=== PATIENT | female | born 1940 | race Hispanic/Latino ===

== ENCOUNTER 2017-09-15 11:26 | Inpatient (IN) | payer MEDICARE, MEDICAID ==
[2017-09-15 12:33] LABS: #Eosinphils 0.1 thou/uL (0.0-0.7); #Lymphocytes 1.3 thou/uL (1.20-3.40); #Monocytes 0.4 thou/uL (0.11-0.59); #Neutrophils 5.6 thou/uL (1.40-6.50); %Basophils 0.5 % (0.0-1.0); %Eosinophils 0.8 % (0.0-10.0); %Lymphocytes 17.1 % (21.0-51.0); %Monocytes 4.8 % (0.0-10.0); %Neutrophils 76.7 % (42.0-75.0); Hemoglobin 9.4 g/dL (12.0-16.0); Mean Corpuscular Hemoglobin 32.8 pg (27.0-31.0); Mean Corpuscular Volume 93.6 fL (78.0-98.0); Mean Platelet Volume 8.1 fL (7.4-10.4); Platelet Count 278 thou/uL (130-400); RBC Distribution Width 11.6 % (11.5-14.5); Red Blood Cell (RBC) Count 2.88 mill/uL (4.20-5.40); White Blood Cell (WBC) Count 7.3 thou/uL (4.8-10.8)
[2017-09-15 12:53] LABS: ALT (SGPT) 16 U/L (8-55); AST (SGOT) 21 U/L (5-34); Albumin 4.1 g/dL (3.4-4.8); Alkaline Phosphatase 83 U/L (40-150); Anion Gap 12 mmol/L (10-20); BUN (Urea Nitrogen) 29 mg/dL (9.8-20.1); Bilirubin, Total 0.8 mg/dL (0.2-1.2); Calc. Creatinine Clearance 0 mL/min (70-130); Calcium 9.4 mg/dL (7.8-10.44); Carbon Dioxide 23 mmol/L (23-31); Chloride 105 mmol/L (98-107); Estimated GFR-MDRD 68; Globulin 2.2 g/dL (2.4-3.5); Glucose 161 mg/dL (83-110); Protein, Total 6.3 g/dL (6.0-8.3); Sodium 136 mmol/L (136-145)
[2017-09-15] MEDS ORDERED: ISOVUE-370 76%-LOCM 1 ML ONE (12:57)
[2017-09-15] MEDS ORDERED: Pantoprazole 40 MG VIAL ONE (13:34)
[2017-09-15] MEDS ORDERED: Metoclopramide HCl 10 MG/2 ML VIAL ONE (13:34)
[2017-09-15] MEDS ORDERED: diphenhydrAMINE 50 MG/ML VIAL ONE (13:34)
[2017-09-15 14:20] LABS: Troponin I Less than 0.010 ng/mL (< 0.028)
--- NOTE | 2017-09-15 15:06 | CT ---
HEAD CT WITHOUT CONTRAST: DATE: 09/15/17. COMPARISON: None. HISTORY: Headache and weakness. TECHNIQUE: Serial axial CT imaging at 5 mm intervals from the vertex through the skull base without contrast. FINDINGS: The imaged paranasal sinuses and mastoid air cells appear well aerated. There is no displaced calvar ial fracture, intracranial hemorrhage, midline shift, or mass effect. IMPRESSION: No intracranial hemorrhage or displaced calvarial fracture. POS: [facility]
--- NOTE | 2017-09-15 15:11 | CT ---
CT OF THE ABDOMEN AND PELVIS WITH CONTRAST: HISTORY: Abdominal pain, weakness, and nausea. TECHNIQUE: Multiple contiguous axial images were obtained in a CT of the abdomen and pelvis with contrast. Milly nal reformats were performed. FINDINGS: There is a 3.9 cm hyperenhancing lesion in the left lobe of the liver which is nonspecific but could represent an atypical hemangioma. There are other hypodensities in the liver which could represent c ysts. There is a 2.8 cm hypodensity in the left kidney which represents a cyst. Other small hypoden sities in both kidneys also likely represent cysts. The patient is status post cholecystectomy. The adrenal glands, spleen, and pancreas are unremarkable. No free air, free fluid, or stranding changes are seen in the abdomen or pelvis. The uterus is atrop hic. There are a few scattered diverticula in the colon. The small bowel and appendix are unremarka ble. No abdominal or pelvic lymphadenopathy are seen. There is a small fat-containing umbilical hernia. The visualized inferior thorax is unremarkable. There are degenerative changes in the spine. 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 IMPRESSION: 1. No acute intraabdominal/pelvic abnormality. 2. Possible hepatic hemangioma. 3. Hepatic and renal cysts. 4. Diverticulosis. 5. Umbilical hernia. 6. Avascular necrosis and degenerative changes in both hips. POS: [facility]
[2017-09-15 15:16] LABS: Bilirubin Negative (Negative); Blood, Urine Negative (Negative); Clarity CLEAR (Clear); Glucose, Urine (Dipstick) Negative (Negative); Leukocyte Negative (Negative); Nitrite Negative (Negative); Protein, Urine (Dipstick) Negative (Neg-Trace); Specific Gravity, Urine 1.022 (1.002-1.036); Urobilinogen 0.2 mg/dL (0.2-1.0)
[2017-09-15] MEDS ORDERED: Dextrose 5% in Water 1,000 ML IV PRN (19:07)
[2017-09-15] MEDS ORDERED: Dextrose 50% Abboject 50 ML SYRINGE SLOW IVP PRN (19:07)
[2017-09-15] MEDS ORDERED: HumaLOG 300 UNITS/3 ML VIAL SC PRN (19:07)
[2017-09-15] MEDS ORDERED: Acetaminophen 325 MG TAB PO PRN (19:07)
[2017-09-15] MEDS ORDERED: Guaifenesin DM 100-10/5 ML UDCUP PO PRN (19:07)
[2017-09-15] MEDS ORDERED: Sodium Chloride 0.9% 1,000 ML IV SCH (19:15)
[2017-09-15] MEDS ORDERED: hydrALAZINE 25 MG TAB PO SCH (21:00)
[2017-09-15] MEDS: Pantoprazole 80 MG in Sodium Chloride 0.9% 100 ML IVP SCH (21:42)
[2017-09-15] MEDS: Sodium Chloride 0.9% 1,000 ML IV SCH (21:42)
[2017-09-15] MEDS: Atorvastatin Calcium 20 MG TAB PO SCH (21:44)
[2017-09-15] MEDS: Gabapentin 300 MG CAP PO SCH (21:44)
[2017-09-16 00:24] VITALS: BMI 26.5
--- NOTE | 2017-09-16 02:04 | HP ---
REASON FOR ADMISSION: Melena. HISTORY OF PRESENT ILLNESS: Patient gives history of having black stools from the last two days. Jordan cuevas has had nearly 3 stools all of which were black. She is feeling weak. The patient vomited twice f rom yesterday. She has been dry heaving as she has not had anything to eat. She is actually from [place], [place] and is visiting family here. Her primary care physician is Dr. Edgar Day in [place], [place]. Per patient, she has had a colonoscopy done 6 months back in [facility] on [facility] in [place], which was normal as far she can remember. No complaints of abdominal pain as such n ow. She has had some colicky pain prior to arrival here. PAST MEDICAL AND SURGICAL HISTORY: Hypertension, dyslipidemia, GERD, low back pain, surgery for kidn ey stones. Hemoglobin A1c of 6.2 in 03/2017. CURRENT MEDICATIONS: Patient is on hydralazine 100 mg twice daily, gabapentin 600 mg p.o. 3 times da gil, ranitidine 150 mg daily, chlorthalidone 50 mg p.o. daily, Tylenol with codeine p.r.n., Coreg 12. 5 mg twice daily, atorvastatin 20 mg daily, Norvasc 10 mg daily, lisinopril 20 mg daily. ALLERGIES: No known drug allergies. PERSONAL HISTORY: Does not abuse alcohol or drugs. No history of smoking. She normally ambulates w ith a walker. FAMILY HISTORY: Mother in her 70s. Father at the age of 85 years as far as patient knows they of natural causes. No history of colon cancer in the parents. REVIEW OF SYSTEMS: The following complete review of systems was negative, unless otherwise mentioned in the HPI or below: Constitutional: Weight loss or gain, ability to conduct usual activities. Sk in: Rash, itching. Eyes: Double vision, pain. ENT/Mouth: Nose bleeding, neck stiffness, pain, te nderness. Cardiovascular: Palpitations, dyspnea on exertion, orthopnea. Respiratory: Shortness of breath, wheezing, cough, hemoptysis, fever or night sweats. Gastrointestinal: Poor appetite, abdom inal pain, heartburn, nausea, vomiting, constipation, or diarrhea. Genitourinary: Urgency, frequenc y, dysuria, nocturia. Musculoskeletal: Pain, swelling. Neurologic/Psychiatric: Anxiety, depressio n. Allergy/Immunologic: Skin rash, bleeding tendency. CODE STATUS: FULL. PHYSICAL EXAMINATION: GENERAL: Patient is a 77-year-old female who is currently not in any acute distress. VITAL SIGNS: Blood pressure 98/66, pulse 75 per minute, respiratory rate 14 per minute, temperature 97.5 degrees Fahrenheit, saturating 99% on room air. NECK: Supple, no elevated JVD. HEENT: Eyes, extraocular muscles intact. Pupils are reacting to light. Oral cavity, mucous membran es are dry. No exudates or congestion. CARDIOVASCULAR: S1, S2 heard. Regular rhythm. RESPIRATORY: Air entry 1+ bilaterally. No rales or rhonchi. ABDOMEN: Soft, bowel sounds heard. No tenderness, rigidity or guarding. EXTREMITIES: No peripheral edema or calf tenderness. VASCULAR SYSTEM: Peripheral pulses 1+ bilateral, no ischemic ulcerations or gangrene. CENTRAL NERVOUS SYSTEM: No gross focal deficits noted. Patient is alert, awake, and oriented well. PSYCHIATRIC: Patient's mood is euthymic. No hallucinations or delusions. LABORATORY AND X-RAY FINDINGS: H&H 9 and 26, platelet count 278, white count of 7.3. BUN 29, creati nine 0.8 and serum glucose 161. Liver enzymes within normal limits. First set of cardiac enzymes ar e negative. Albumin is 4.1. UA is negative for any infection. Stool occult blood x1 is positive. CT of the abdomen and pelvis with contrast done showed no acute abnormality. There is possible hepat ic hemangioma, hepatic and renal cysts were seen. Diverticulosis was seen. Umbilical hernia and inc idental finding of avascular necrosis and degenerative changes in both hips. CT brain done showed no acute intracranial hemorrhage or fractures. CLINICAL IMPRESSION AND PLAN: Patient will be admitted to medical floor for melena. Baseline H&H is around 12 and 37, this was the number in 12/2015. Currently, the H&H is dropped to 9 and 26. She a pparently had a recent colonoscopy as far as she can remember 6 months back and was normal. She does not recall her site superintendent saying she had diverticulosis or polyps removed. Her CT abdomen n ow reveals diverticulosis and likely might have diverticular bleed, but her stool is black. Patient takes only Bowie and no other pain medications. She is also on the ranitidine. Her BUN is slightly higher. We will place her on Protonix drip, H&H q.6 hours. Patient's systolic blood pressure was ar ound 100 when she came. She is on multiple antihypertensive medications at home. In view of this, mirian cuevas will place her on normal saline at 100 mL per hour for now. We will continue her Coreg, Neurontin, Lipitor for now. She will be on a clear liquid diet. Gastroenterology consultation with Dr. Mike chavarria be requested. Patient has had a hemoglobin A1c of 6.2 in 03/2017 and likely the patient has the new onset diabetes mellitus type 2. Her serum sugar was 160 here. She will be covered with mild Hum alog coverage here. We will continue to closely monitor her on medical floor.
[2017-09-16 02:28] LABS: Hemoglobin 8.3 g/dL (12.0-16.0)
[2017-09-16 05:29] LABS: ALT (SGPT) 13 U/L (8-55); AST (SGOT) 17 U/L (5-34); Albumin 3.4 g/dL (3.4-4.8); Alkaline Phosphatase 67 U/L (40-150); Anion Gap 9 mmol/L (10-20); BUN (Urea Nitrogen) 19 mg/dL (9.8-20.1); Bilirubin, Total 0.9 mg/dL (0.2-1.2); Calc. Creatinine Clearance 65 mL/min (70-130); Calcium 8.8 mg/dL (7.8-10.44); Carbon Dioxide 23 mmol/L (23-31); Chloride 110 mmol/L (98-107); Estimated GFR-MDRD Greater than 90; Glucose 88 mg/dL (83-110); Potassium 3.2 mmol/L (3.5-5.1); Protein, Total 5.4 g/dL (6.0-8.3); Sodium 139 mmol/L (136-145)
[2017-09-16] MEDS: Pantoprazole 80 MG in Sodium Chloride 0.9% 100 ML IVP SCH ×2 (05:49→19:08)
[2017-09-16] MEDS: Sodium Chloride 0.9% 1,000 ML IV SCH ×2 (05:49→08:51)
[2017-09-16 07:43] LABS: Hemoglobin 8.1 g/dL (12.0-16.0)
[2017-09-16] MEDS: Carvedilol 6.25 MG TAB PO SCH ×2 (08:51→16:25)
[2017-09-16] MEDS: Gabapentin 300 MG CAP PO SCH ×3 (08:51→20:37)
[2017-09-16] MEDS ORDERED: Amlodipine 10 MG TAB PO SCH (09:00)
--- NOTE | 2017-09-16 12:54 | PDOC.PN ---
- Subjective Encounter Start Date: 09/16/17 Encounter Start Time: 11:00 Subjective: no further bowel movement -: no nausea or abd pain -: feels better - Objective Resuscitation Status: Resuscitation Status FULL:Full Resuscitation MAR Reviewed: Yes Vital Signs & Weight: Vital Signs (12 hours) Temp Pulse Resp BP BP Pulse Ox 09/16/17 11:39 97.5 F L 60 14 126/62 94 L 09/16/17 08:51 152/70 H 09/16/17 08:00 98.1 F 60 16 196/67 H 96 09/16/17 04:40 147/67 H 09/16/17 03:42 97.6 F 67 16 191/81 H 94 L Weight Weight 111 lb 1.6 oz I&O: 09/15/17 09/16/17 09/17/17 06:59 06:59 06:59 Intake Total 913 Output Total 0 Balance 913 Result Diagrams: 09/16/17 07:16 09/16/17 01:32 Additional Labs: Accuchecks 09/16/17 09/16/17 11:43 03:48 POC Glucose 230 H 99 Phys Exam - Physical Examination HEENT: PERRLA, moist MMs Neck: no JVD, supple Respiratory: no wheezing, no rales Cardiovascular: RRR, no significant murmur Gastrointestinal: soft, non-tender, positive bowel sounds Musculoskeletal: no edema, pulses present Neurological: non-focal, moves all 4 limbs Psychiatric: A&O x 3 Dx/Plan (1) Melena Code(s): K92.1 - MELENA Status: Acute (2) Anemia Code(s): D64.9 - ANEMIA, UNSPECIFIED Status: Acute Qualifiers: Anemia type: unspecified type Qualified Code(s): D64.9 - Anemia, unspecified Comment: ?ac blood loss (3) HTN (hypertension) Code(s): I10 - ESSENTIAL (PRIMARY) HYPERTENSION Status: Chronic Qualifiers: Hypertension type: essential hypertension Qualified Code(s): I10 - Essential (primary) hypertension (4) DM type 2 (diabetes mellitus, type 2) Status: Chronic Qualifiers: Diabetes mellitus intermodal customer service insulin use: without intermodal customer service use Diabetes mellitus complication status: with unspecified complications Qualified Code(s) : E11.8 - Type 2 diabetes mellitus with unspecified complications (5) Dyslipidemia Code(s): E78.5 - HYPERLIPIDEMIA, UNSPECIFIED Status: Chronic - Plan is on protonix drip -: clear liq diet, hb dropped down to 8g but also recieved iv fluids -: might need egd, await gi opinion -: records from [facility] in [place] -: continue coreg and lipitor, gentle iv hydration * . Review of Systems - Medications/Allergies Allergies/Adverse Reactions: Allergies Allergy/AdvReac Type Severity Reaction Status Date / Time No Known Allergies Allergy Unverified 09/15/17 19:15 Medications: Current Medications Acetaminophen (Tylenol) 650 mg PO Q4H PRN PRN Reason: Headache/Fever or Pain Last Admin: 09/16/17 06:05 Dose: 650 mg Atorvastatin Calcium (Lipitor) 20 mg PO HS [facility] Last Admin: 09/15/17 21:44 Dose: 20 mg Carvedilol (Coreg) 12.5 mg PO BID-[facility] Last Admin: 09/16/17 08:51 Dose: 12.5 mg Dextrose/Water (Dextrose 50%) 25 gm SLOW IVP PRN PRN PRN Reason: Hypoglycemia Gabapentin (Neurontin) 300 mg PO TID [facility] Last Admin: 09/16/17 08:51 Dose: 300 mg Glucagon (Glucagon) 1 mg IM PRN PRN PRN Reason: Hypoglycemia Guaifenesin/Dextromethorphan (Robitussin Dm) 15 ml PO Q4H PRN PRN Reason: Cough Dextrose/Water (D5w) 1,000 mls @ 0 mls/hr IV .Q0M PRN; As Directed PRN Reason: Hypoglycemia Pantoprazole Sodium 80 mg/ (Sodium Chloride) 100 mls @ 10 mls/hr IVP INF [facility] Last Admin: 09/16/17 05:49 Dose: 100 mls Sodium Chloride (Normal Saline 0.9%) 1,000 mls @ 50 mls/hr IV .Q20H L[facility] Last Admin: 09/16/17 08:51 Dose: 1,000 mls Insulin Human Lispro (Humalog) 0 units SC .MILD SLIDING SCALE PRN PRN Reason: Mild Correctional Scale Sodium Chloride (Flush - Normal Saline) 10 ml IVF Q12HR [facility] Last Admin: 09/16/17 08:53 Dose: Not Given Sodium Chloride (Flush - Normal Saline) 10 ml IVF PRN PRN PRN Reason: Saline Flush
[2017-09-16] MEDS: Atorvastatin Calcium 20 MG TAB PO SCH (20:37)
--- NOTE | 2017-09-16 23:53 | CON ---
DATE OF CONSULTATION: 09/16/2017 REQUESTING PHYSICIAN: Dr. Carreon. REASON FOR CONSULTATION: Melena. HISTORY OF PRESENT ILLNESS: Gabi Walsh is a very pleasant 77-year-old woman who speaks Angolan only. Her granddaughter helps translate for us. She is actually just visiting town at this time. She is from [place], [place]. She was admitted to the hospital yesterday with anemia and complaints of melena. She reports that about 5 days ago, she started having epigastric abdominal pain followed by nausea and nonbloody emesis. Then, for the past 2 days, she began having jet black stool. She had 3 episodes of what appeared to be melenic stool over those couple of days prior to presentation. Upon admission yesterday, hemoglobin was found to be 9.4, with no prior history of anemia. With some flu id resuscitation, hemoglobin trended down to 8.3 this morning and now 8.1 this afternoon. She has no t had any further melenic stool today. Today, she is not having any abdominal pain or nausea. She h as been on a Protonix drip since presentation. She has been hemodynamically stable. She also report s that she had a colonoscopy just about 6 months ago at [facility] which was evidently all nor mal. It looks like she takes ranitidine once a day as an outpatient. REVIEW OF SYSTEMS: Full review of systems including constitutional, head, eyes, ears, nose, throat, GI, , cardiovascular, respiratory, musculoskeletal, and neurologic systems is negative except as no eleni in the HPI. PAST MEDICAL HISTORY: Hypertension, hyperlipidemia, GERD, low back pain, surgery for kidney stones, normal colonoscopy earlier this year, elsewhere. ALLERGIES: No known drug allergies. OUTPATIENT MEDICATIONS: Hydralazine, gabapentin, ranitidine 150 mg daily, chlorthalidone, Tylenol wi th codeine p.r.n., Coreg, atorvastatin, Norvasc, lisinopril. SOCIAL HISTORY: No smoking, alcohol, or drug use. FAMILY HISTORY: Negative for gastrointestinal malignancy. PHYSICAL EXAMINATION: VITAL SIGNS: Temperature 97.5, pulse 60, blood pressure 126/62, 94% oxygen saturation on room air. GENERAL: Elderly 77-year-old woman lying in bed comfortably in no distress. MENTAL: Alert and fully oriented, pleasant, conversational. SKIN: No jaundice, no rash visible or palpable. EYES: No scleral icterus. Extraocular movements intact. ENT: Mucous membranes moist, no oral lesions. LYMPH: No submandibular, supraclavicular lymphadenopathy. THYROID: Nontender to palpation. HEART: Regular rate and rhythm. LUNGS: Clear to auscultation bilaterally. ABDOMEN: Bowel sounds present, soft and nontender to palpation throughout. EXTREMITIES: No peripheral edema. VESSELS: Radial pulses 2+ bilaterally. NEUROLOGICAL: Cranial nerves II-XII intact bilaterally. No focal deficits. LABORATORY STUDIES: Admission hemoglobin was 9.4 this declined to 8.3 this morning and then 8.1 this afternoon. Admission BUN was 29, which declined to 19 today, creatinine 0.59, sodium 139, potassium 3.2, glucose 230. WBC 7.3, platelets 278. LFTs all normal with total bilirubin 0.9, alkaline phosp hatase 67, AST 17, ALT 13, albumin 3.4. Troponin negative. CK 50. FOBT positive. Urinalysis negat andree. IMAGING STUDIES: CT of the head showed no acute processes. CT of the abdomen and pelvis demonstrate d no acute processes. She is post-cholecystectomy, normal appearing spleen and pancreas, bilateral r enal cysts. She has a 3.9 cm left liver lesion which likely represents a hemangioma. She has divert iculosis and an umbilical hernia as well as avascular necrosis of the bilateral femoral heads. ASSESSMENT AND PLAN: 1. Melena. 2. Acute blood loss anemia. 3. Epigastric pain. 4. Nausea and vomiting, resolved. The patient's presentation seems most consistent with upper GI mucosal pathology such as peptic ulcer disease. Note the elevated BUN to creatinine ratio upon presentation, which has since improved sign ificantly. She has had some decline in hemoglobin, but no further overt bleeding today and she is he modynamically stable. I do recommend we proceed with EGD for further investigation. We will have he r n.p.o. after midnight and plan for the procedure tomorrow. In the meantime, I agree with the Aminta mays IV drip. Further recommendations following EGD. Please call back anytime with questions or concerns.
[2017-09-17] MEDS: Pantoprazole 80 MG in Sodium Chloride 0.9% 100 ML IVP SCH (03:59)
[2017-09-17] MEDS: Sodium Chloride 0.9% 1,000 ML IV SCH ×2 (03:59→17:13)
[2017-09-17] MEDS: Carvedilol 6.25 MG TAB PO SCH ×2 (06:41→17:05)
[2017-09-17 08:41] LABS: #Basophils 0.1 thou/uL (0.0-0.2); #Eosinphils 0.1 thou/uL (0.0-0.7); #Lymphocytes 1.3 thou/uL (1.20-3.40); #Monocytes 0.5 thou/uL (0.11-0.59); #Neutrophils 3.6 thou/uL (1.40-6.50); %Basophils 0.9 % (0.0-1.0); %Eosinophils 1.7 % (0.0-10.0); %Lymphocytes 23.3 % (21.0-51.0); %Monocytes 8.3 % (0.0-10.0); %Neutrophils 65.8 % (42.0-75.0); Hemoglobin 7.9 g/dL (12.0-16.0); Mean Corpuscular HGB CONC 34.3 g/dL (32.0-36.0); Mean Corpuscular Hemoglobin 32.8 pg (27.0-31.0); Mean Corpuscular Volume 95.8 fL (78.0-98.0); Mean Platelet Volume 8.4 fL (7.4-10.4); Platelet Count 205 thou/uL (130-400); RBC Distribution Width 11.7 % (11.5-14.5); Red Blood Cell (RBC) Count 2.41 mill/uL (4.20-5.40); White Blood Cell (WBC) Count 5.5 thou/uL (4.8-10.8)
[2017-09-17 08:57] LABS: Anion Gap 8 mmol/L (10-20); BUN (Urea Nitrogen) 6 mg/dL (9.8-20.1); Calc. Creatinine Clearance 63 mL/min (70-130); Calcium 8.7 mg/dL (7.8-10.44); Carbon Dioxide 26 mmol/L (23-31); Chloride 112 mmol/L (98-107); Estimated GFR-MDRD Greater than 90; Glucose 126 mg/dL (83-110); Potassium 3.4 mmol/L (3.5-5.1); Sodium 143 mmol/L (136-145)
[2017-09-17] MEDS: Gabapentin 300 MG CAP PO SCH ×3 (09:10→20:38)
--- NOTE | 2017-09-17 13:27 | PDOC.PN ---
- Subjective Encounter Start Date: 09/17/17 Encounter Start Time: 11:00 Subjective: no abd pain or nausea -: is npo for egd today - Objective Resuscitation Status: Resuscitation Status FULL:Full Resuscitation MAR Reviewed: Yes Vital Signs & Weight: Vital Signs (12 hours) Temp Pulse Resp BP BP Pulse Ox 09/17/17 12:29 98.5 F 16 L 16 202/67 H 97 09/17/17 08:00 98.0 F 57 L 16 09/17/17 07:59 98.0 F 57 L 16 180/64 H 91 L 09/17/17 06:41 161/72 H 09/17/17 03:40 98.3 F 59 L 16 161/62 H 95 09/17/17 02:03 98.2 F 57 L 16 152/66 H 99 Weight Weight 111 lb 1.6 oz I&O: 09/16/17 09/17/17 09/18/17 06:59 06:59 06:59 Intake Total 913 1700 Output Total 0 Balance 913 1700 Result Diagrams: 09/17/17 08:19 09/17/17 08:19 Additional Labs: Accuchecks 09/17/17 09/17/17 09/16/17 11:36 04:58 20:54 POC Glucose 130 H 122 H 204 H 09/16/17 16:17 POC Glucose 136 H Phys Exam - Physical Examination HEENT: PERRLA, moist MMs Neck: no JVD, supple Respiratory: no wheezing, no rales Cardiovascular: RRR, no significant murmur Gastrointestinal: soft, non-tender, positive bowel sounds Musculoskeletal: no edema, pulses present Neurological: non-focal, moves all 4 limbs Psychiatric: A&O x 3 Dx/Plan (1) Melena Code(s): K92.1 - MELENA Status: Acute (2) Anemia Code(s): D64.9 - ANEMIA, UNSPECIFIED Status: Acute Qualifiers: Anemia type: unspecified type Qualified Code(s): D64.9 - Anemia, unspecified Comment: ac blood loss (3) HTN (hypertension) Code(s): I10 - ESSENTIAL (PRIMARY) HYPERTENSION Status: Chronic Qualifiers: Hypertension type: essential hypertension Qualified Code(s): I10 - Essential (primary) hypertension (4) DM type 2 (diabetes mellitus, type 2) Status: Chronic Qualifiers: Diabetes mellitus half-way insulin use: without superintendent marine oil terminal use Diabetes mellitus complication status: with unspecified complications Qualified Code(s) : E11.8 - Type 2 diabetes mellitus with unspecified complications (5) Dyslipidemia Code(s): E78.5 - HYPERLIPIDEMIA, UNSPECIFIED Status: Chronic - Plan for EGD today -: hemoglobin 7.9g -: will start iron after EGD -: on protonix drip, lipitor and coreg -: at bedside, gave updates * . Review of Systems - Medications/Allergies Allergies/Adverse Reactions: Allergies Allergy/AdvReac Type Severity Reaction Status Date / Time No Known Allergies Allergy Unverified 09/15/17 19:15 Medications: Current Medications Acetaminophen (Tylenol) 650 mg PO Q4H PRN PRN Reason: Headache/Fever or Pain Last Admin: 09/16/17 06:05 Dose: 650 mg Atorvastatin Calcium (Lipitor) 20 mg PO HS [facility] Last Admin: 09/16/17 20:37 Dose: 20 mg Carvedilol (Coreg) 12.5 mg PO BID-WM [facility] Last Admin: 09/17/17 06:41 Dose: 12.5 mg Dextrose/Water (Dextrose 50%) 25 gm SLOW IVP PRN PRN PRN Reason: Hypoglycemia Gabapentin (Neurontin) 300 mg PO TID [facility] Last Admin: 09/17/17 09:10 Dose: Not Given Glucagon (Glucagon) 1 mg IM PRN PRN PRN Reason: Hypoglycemia Guaifenesin/Dextromethorphan (Robitussin Dm) 15 ml PO Q4H PRN PRN Reason: Cough Dextrose/Water (D5w) 1,000 mls @ 0 mls/hr IV .Q0M PRN; As Directed PRN Reason: Hypoglycemia Pantoprazole Sodium 80 mg/ (Sodium Chloride) 100 mls @ 10 mls/hr IVP INF [facility] Last Admin: 09/17/17 03:59 Dose: 100 mls Sodium Chloride (Normal Saline 0.9%) 1,000 mls @ 50 mls/hr IV .Q20H LEX Last Admin: 09/17/17 03:59 Dose: Not Given Insulin Human Lispro (Humalog) 0 units SC .MILD SLIDING SCALE PRN PRN Reason: Mild Correctional Scale Sodium Chloride (Flush - Normal Saline) 10 ml IVF Q12HR [facility] Last Admin: 09/17/17 09:11 Dose: Not Given Sodium Chloride (Flush - Normal Saline) 10 ml IVF PRN PRN PRN Reason: Saline Flush
[2017-09-17] MEDS ORDERED: Ondansetron HCl/PF 4 MG/2 ML Vial IVP PRN (15:57)
[2017-09-17] MEDS ORDERED: Promethazine HCl 25 MG/ML VIAL IM PRN (15:57)
[2017-09-17] MEDS ORDERED: Promethazine HCl 25 MG/ML VIAL SLOW IVP PRN (15:57)
[2017-09-17] MEDS ORDERED: hydrALAZINE 20 MG/ML VIAL ONE (16:20)
[2017-09-17] MEDS: Pantoprazole 40 MG VIAL IVP SCH (20:38)
[2017-09-17] MEDS: Atorvastatin Calcium 20 MG TAB PO SCH (20:38)
--- NOTE | 2017-09-17 20:42 | OP ---
DATE OF PROCEDURE: 09/17/2017 PROCEDURE: Esophagogastroduodenoscopy with biopsy. INDICATION FOR PROCEDURE: Melena, GI bleeding. DESCRIPTION OF PROCEDURE: After the risks and benefits of the procedure were explained to the patien t including risks of bleeding, infection, perforation, reaction to anesthesia and/or pain, informed c onsent was obtained. The patient was then taken to the endoscopy suite where deep sedation was admin istered via propofol and anesthesia support. Once adequate sedation was achieved, the standard gastr oscope was introduced into the mouth with intubation of the esophagus, stomach and proximal small int estine with the findings listed below. The patient tolerated the procedure well with no immediate pe rioperative complications. FINDINGS: Esophagus: Normal appearing mucosa was seen in the proximal, mid and distal esophagus. There was no evidence of erosions, ulcerations, mass lesions or active/recent bleeding. Both the diaphragmatic p inch and GE junction were well seen at 35 cm past the incisors. Stomach: Normal-appearing mucosa was seen in the gastric cardia, fundus, body, greater curvature and incisura; however, 2 depressed clean based ulcerations measuring approximately 5-6 mm in size were s een in the gastric antrum/prepyloric region. The ulcers themselves were in a state of healing with n ormal appearing mucosa intermixed with the small ulcerations (the ulcerations as a whole measuring ap proximately 5-6 mm diameter). There was no high risk stigmata of active/recent bleeding. Multiple b iopsies were taken from the ulcerations as well as random gastric biopsies for determination of H. py winston status. No other intervention was taken given decreased risk of rebleeding. No abnormalities w ere seen on gastric retroflexion. Duodenum: Normal-appearing mucosa was seen in both the duodenal bulb and second portion of the duode num. There was no evidence of erosions, ulcerations, mass lesions or active/recent bleeding. IMPRESSION: 1. Two 5-6 mm depressed ulcerations in a state of healing with no high risk stigmata seen in the gas tric antrum/prepyloric region (most likely source of patient's recent melena). 2. Otherwise, normal upper endoscopy. RECOMMENDATIONS: 1. We would continue to trend H&H and transfuse as necessary to maintain an H&H of 09/20. 2. We would continue to monitor clinically for signs of active gastrointestinal bleeding. 3. We will transfer patient from a PPI drip to pantoprazole 40 mg twice daily. She will need to be on this regimen for the next 2-3 months. 4. We would avoid any NSAIDs as it could cause these ulcerations. 5. We will follow up on biopsy results. If positive for H. pylori, we would place patient on approp riate treatment. 6. The patient will need a repeat EGD in approximately 8-12 weeks for reevaluation of these gastric ulcerations to confirm healing. We will continue to follow. Please call with any additional kalli feliz.
[2017-09-18] MEDS: Gabapentin 300 MG CAP PO SCH ×2 (08:17→14:47)
[2017-09-18] MEDS: Carvedilol 6.25 MG TAB PO SCH ×2 (08:17→17:44)
[2017-09-18] MEDS: Pantoprazole 40 MG VIAL IVP SCH (08:21)
[2017-09-18 08:28] VITALS: TEMP 98
[2017-09-18 08:55] LABS: #Basophils 0.1 thou/uL (0.0-0.2); #Eosinphils 0.2 thou/uL (0.0-0.7); #Lymphocytes 1.6 thou/uL (1.20-3.40); #Monocytes 0.5 thou/uL (0.11-0.59); %Eosinophils 3.1 % (0.0-10.0); %Lymphocytes 24.4 % (21.0-51.0); %Monocytes 8.5 % (0.0-10.0); Hemoglobin 8.5 g/dL (12.0-16.0); Mean Corpuscular HGB CONC 34.3 g/dL (32.0-36.0); Mean Corpuscular Hemoglobin 32.8 pg (27.0-31.0); Mean Corpuscular Volume 95.8 fL (78.0-98.0); Mean Platelet Volume 8.1 fL (7.4-10.4); Platelet Count 242 thou/uL (130-400); RBC Distribution Width 12.3 % (11.5-14.5); Red Blood Cell (RBC) Count 2.58 mill/uL (4.20-5.40); White Blood Cell (WBC) Count 6.3 thou/uL (4.8-10.8)
[2017-09-18 09:11] LABS: Anion Gap 13 mmol/L (10-20); BUN (Urea Nitrogen) 5 mg/dL (9.8-20.1); Calc. Creatinine Clearance 50 mL/min (70-130); Calcium 8.6 mg/dL (7.8-10.44); Carbon Dioxide 22 mmol/L (23-31); Chloride 108 mmol/L (98-107); Estimated GFR-MDRD 74; Glucose 227 mg/dL (83-110); Potassium 3.5 mmol/L (3.5-5.1); Sodium 139 mmol/L (136-145)
--- NOTE | 2017-09-18 11:59 | PDOC.PN ---
- Subjective Encounter Start Date: 09/18/17 Encounter Start Time: 07:45 Subjective: no bleeding per rectum, had 2 episodes of diarrhea post eating -: no nausea or abd dyscomfort now - Objective Resuscitation Status: Resuscitation Status FULL:Full Resuscitation MAR Reviewed: Yes Vital Signs & Weight: Vital Signs (12 hours) Temp Pulse Resp BP BP Pulse Ox 09/18/17 08:17 164/63 H 09/18/17 08:00 98.0 F 61 16 148/67 H 99 09/18/17 06:00 98.8 F 62 16 146/70 H 94 L Weight Weight 111 lb 1.6 oz I&O: 09/17/17 09/18/17 09/19/17 06:59 06:59 06:59 Intake Total 1700 650 360 Balance 1700 650 360 Result Diagrams: 09/18/17 08:38 09/18/17 08:38 Additional Labs: Accuchecks 09/18/17 09/18/17 09/17/17 06:19 01:31 16:47 POC Glucose 136 H 115 H 107 Phys Exam - Physical Examination HEENT: PERRLA, moist MMs Neck: no JVD, supple Respiratory: no wheezing, no rales Cardiovascular: RRR, no significant murmur Gastrointestinal: soft, non-tender, positive bowel sounds Musculoskeletal: no edema, pulses present Neurological: non-focal, moves all 4 limbs Psychiatric: normal affect, A&O x 3 Dx/Plan (1) Melena Code(s): K92.1 - MELENA Status: Resolved (2) Anemia Code(s): D64.9 - ANEMIA, UNSPECIFIED Status: Acute Qualifiers: Anemia type: unspecified type Qualified Code(s): D64.9 - Anemia, unspecified Comment: ac blood loss (3) HTN (hypertension) Code(s): I10 - ESSENTIAL (PRIMARY) HYPERTENSION Status: Chronic Qualifiers: Hypertension type: essential hypertension Qualified Code(s): I10 - Essential (primary) hypertension (4) DM type 2 (diabetes mellitus, type 2) Status: Chronic Qualifiers: Diabetes mellitus terminal carman insulin use: without senior care use Diabetes mellitus complication status: with unspecified complications Qualified Code(s) : E11.8 - Type 2 diabetes mellitus with unspecified complications (5) Dyslipidemia Code(s): E78.5 - HYPERLIPIDEMIA, UNSPECIFIED Status: Chronic - Plan had ulcer over gastric antrum, non bleeding on EGD -: on protonix bid -: h/h stable this am, will advance diet to solid diet -: dc plan this afternoon home if ok with GI -: d/w pt and at bedside * . Review of Systems - Medications/Allergies Allergies/Adverse Reactions: Allergies Allergy/AdvReac Type Severity Reaction Status Date / Time No Known Allergies Allergy Unverified 09/15/17 19:15 Medications: Current Medications Acetaminophen (Tylenol) 650 mg PO Q4H PRN PRN Reason: Headache/Fever or Pain Last Admin: 09/16/17 06:05 Dose: 650 mg Atorvastatin Calcium (Lipitor) 20 mg PO HS [facility] Last Admin: 09/17/17 20:38 Dose: 20 mg Carvedilol (Coreg) 12.5 mg PO BID-WM [facility] Last Admin: 09/18/17 08:17 Dose: 12.5 mg Dextrose/Water (Dextrose 50%) 25 gm SLOW IVP PRN PRN PRN Reason: Hypoglycemia Gabapentin (Neurontin) 300 mg PO TID [facility] Last Admin: 09/18/17 08:17 Dose: 300 mg Glucagon (Glucagon) 1 mg IM PRN PRN PRN Reason: Hypoglycemia Guaifenesin/Dextromethorphan (Robitussin Dm) 15 ml PO Q4H PRN PRN Reason: Cough Dextrose/Water (D5w) 1,000 mls @ 0 mls/hr IV .Q0M PRN; As Directed PRN Reason: Hypoglycemia Insulin Human Lispro (Humalog) 0 units SC .MILD SLIDING SCALE PRN PRN Reason: Mild Correctional Scale Pantoprazole Sodium (Protonix) 40 mg PO BID [facility] Sodium Chloride (Flush - Normal Saline) 10 ml IVF Q12HR [facility] Last Admin: 09/18/17 08:18 Dose: 10 ml Sodium Chloride (Flush - Normal Saline) 10 ml IVF PRN PRN PRN Reason: Saline Flush
[2017-09-18 17:44] VITALS: BP 164/63
--- NOTE | 2017-09-18 23:56 | DIS ---
DATE OF ADMISSION: 09/15/2017 DATE OF DISCHARGE: 09/18/2017 DISCHARGE DISPOSITION: To home. PRIMARY DISCHARGE DIAGNOSES: Melena secondary to gastric antral ulcer, stable. Acute blood loss ane danilo, stable. SECONDARY DISCHARGE DIAGNOSES: Hypertension, diabetes mellitus type 2, dyslipidemia. PROCEDURES DONE DURING HOSPITALIZATION: CT brain showed no acute intracranial hemorrhage or fracture s. CT of the abdomen done showed no acute intraabdominal pathology, possible hepatic hemangioma, div erticulosis, umbilical hernia, avascular necrosis and degenerative changes in both hips, upper endosc opy done by Dr. Taurus Solis results showed gastric antral ulcer which was depressed, two 5-mm ulcers in a state of healing with no high risk stigmata. Urine culture no growth. Discharge H&H 8.5 and 2 4, platelet count is 242. Discharge BUN and creatinine is 5 and 0.7. Admitting BUN was 29. DISCHARGE MEDICATIONS: Protonix 40 mg p.o. twice daily for 30 days and to continue for a total of 3 months, lisinopril 20 mg daily, Neurontin 600 mg p.o. 3 times daily, ferrous sulfate 325 mg twice jame ly, chlorthalidone 50 mg daily, Coreg 12.5 mg twice daily, Lipitor 20 mg p.o. at bedtime, Norvasc 10 mg p.o. daily. ALLERGIES: No known drug allergies. INPATIENT CONSULTS: Dr. Damion Waters/Dr. Taurus Solis for Gastroenterology. DISCHARGE PLAN: Patient to follow up with Dr. Damion Waters in 8-12 weeks for a repeat endoscopy. She also needs to follow up with primary care physician in 1 week. BRIEF COURSE DURING HOSPITALIZATION: Patient initially got admitted on the with complaints of b lack stools. Patient had elevated BUN as well, suspicious for possible upper gastrointestinal bleedi ng. She was kept n.p.o. and was placed on Protonix drip. Patient has had recent colonoscopy done at [facility] which according to her was normal. She has had serial H&H done, which has remaine d stable. Upper endoscopy done revealed gastric antral ulcer. She has been switched over to Protoni x 40 mg twice daily. Prior to discharge, she is tolerating oral solid diet. She needs to continue t hat for another 3 months along with ferrous sulfate. She will require a repeat endoscopy in -12 wee ks to see for complete resolution of her ulcer. Biopsies have been obtained and if it is H. pylori p ositive. Dr. Taurus Solis' office will call her for the treatment. She is otherwise hemodynamically stable and will be shortly discharged home. Please see a [id number] documentation on [facility] for the day of discharge.
== END 2017-09-18 17:45 | disposition home or self-care (01) | DRG 384 ==
LOC: ERS 11:26 → 2NO 16:45 → T4-B 09-16 08:16
PROVIDERS: ADMIT Internal Medicine; ATTEND Internal Medicine
PROC: 0DB68ZX Excision of Stomach, Via Natural or Artificial Opening Endoscopic, Diagnostic (ICD-10-PCS; principal; 2017-09-17)
DX: K25.9 Gastric ulcer, unspecified as acute or chronic, without hemorrhage or perforation (principal); D62 Acute posthemorrhagic anemia; I10 Essential (primary) hypertension; E11.9 Type 2 diabetes mellitus without complications; E78.5 Hyperlipidemia, unspecified; K92.1 Melena; K21.9 Gastro-esophageal reflux disease without esophagitis; R11.2 Nausea with vomiting, unspecified
CPT/HCPCS: 36415; 36416; 51701; 70450; 74177; 80048; 80053; 81003; 82274; 82553; 84484; 85014; 85018; 85025; 87086; 88305; 88312; 93005; 96365; 96366; 96375; A4216; A4353; C9113; J0360; J1200; J2765; J7050